=== PATIENT | male | born 1970 | race Caucasian/White ===

== ENCOUNTER → 2019-12-11 | Outpatient (CLI) | payer BC | END | disposition home or self-care (01) | LOC: LABWHC1 07:12 | PROVIDERS: ATTEND Family Medicine | DX: R50.9 Fever, unspecified (principal); R05 Cough | CPT/HCPCS: 87635 ==

== ENCOUNTER → 2023-10-10 | Outpatient (CLI) | payer BC ==
--- NOTE | 2023-10-11 13:58 | P.PCN ---
Description of Procedure: CLINICAL: A home sleep apnea test has been done for confirmation of possible obstructive sleep apnea-hypopnea syndrome. DESCRIPTION OF PROCEDURE: RESULTS: Recording time was 6 hours 54 minutes. Evaluation time was 6 hours 49 minutes. Evaluation time is sufficient for making conclusion about results of the test. Raw data of sleep recording has been reviewed and is adequate. Respiratory channel showed 14 apneas and 119 hypopneas. Apnea-hypopnea index was 19.5 per hour. Pulse rate in the range between minimum 48, maximum 110, average 74 by computer calculation. Lowest desaturation was 80%. IMPRESSION: 1. Moderate obstructive Sleep Apnea Hypopnea Syndrome. Please see other impressions from consultation. PLAN: 1. The patient will be started on auto-PAP treatment for correction of respiratory abnormallities during sleep. 2. I will see patient for follow up visit to discuss results of the test, evaluate clinical response on treatment with PAP therapy and make any necessary adjustments related to mask fitting, pressure, and humidification. 3. Watching and losing weight. 4. Sleep hygiene with regular time in bed for at least 8 hours. 5. No driving if feeling any sleepiness. Thank you very much for allowing me to participate in the management of your patient. Sincerely, Man Serra MD, PhD, FAASM Diplomat of [employer] Sleep Medicine Board of [employer] [facility] Adjust[facility] [place]
== END ==
LOC: 3 N SLEEP 15:30
PROVIDERS: ATTEND Internal Medicine
DX: G47.33 Obstructive sleep apnea (adult) (pediatric) (principal); Z87.891 Personal history of nicotine dependence

== ENCOUNTER → 2024-02-29 | Outpatient (CLI) | payer BC ==
[2024-02-29 16:14] VITALS: BP 133/82; PULSE 98; RESP 16; TEMP 98.7
--- NOTE | 2024-02-29 16:42 | P.PROGSL ---
Subjective DATE: 02/29/2024 FOLLOW UP VISIT. Patient with obstructive sleep apnea hypopnea syndrome return to sleep center for follow-up visit. Recently patient had home sleep apnea test which showed that patient has obstructive sleep apnea hypopnea syndrome and I discussed results of sleep studies with patient in details. Today is his first visit after patient was started on treatment with CPAP. Information from previous visit have been reviewed. Patient is using PAP equipment every night for the whole night, getting PAP supplies in time. The patient does not have significant problems with the mask, PAP unit and humidification. [place] sleepiness scale is 7, which is normal. I checked information from PAP unit. PAP unit pressure 5-15, average 9.3 cm H2O. Usage is 83% and 70% for more then 4 hours, average 6 hours per night. Leak is 15.7 l/m, which is in acceptable range. Apnea Hypopnea Index is 1.1, which is normal. MEDICATIONS have been reviewed, please see below. During physical exam: GENERAL: A pleasant patient without any distress. VITAL SIGNS: Please see below, weight is 247.2 pounds lbs. HEENT: PERRLA, EOMI.low position of soft palate, [place] 3. NECK: Supple. No JVD. LUNGS: Clear to percussion and to auscultation. Good air exchange. No wheezing or rhonchi. HEART: S1, S2 regular. ABDOMEN: Soft and nontender.[] EXTREMITIES: No clubbing or cyanosis. LOG CHIPPER: Awake, alert, and oriented x3. No focal deficit. Impressions: 1. Obstructive sleep apnea-hypopnea syndrome. Patient demonstrated good compliance with treatment, benefiting from treatment. 2. Mild obesity. 3. History of headaches. Plan: 1. Continue using PAP equipment every night for the whole night. 2. Sleep hygiene with regular time in bed for at least 7.5-8 hours 3. PAP unit should stay lower then position of the head. 4. Advised patient to remove all remaining water from humidifier canister daily and make it dry after each usage. Refill canister with fresh distilled water before each usage. 5. Watching weight. 6. Precautions related to driving. No driving if feel any sleepiness. 7. I will maintain prescription for PAP supplies including mask, tube, filters. 8. Follow up visit in 6 months or earlier if patient has any problems. Thank you very much for allowing me to participate in the management of your patient. Man Serra MD, PhD, FAASM. Diplomat of [place] [employer], Sleep Medicine Board by [place] [employer] Inspector [employer] [facility] [place] cc: Rich Norris DO Objective - Vital Signs Vital Signs: Vital Signs Temp 98.7 F 02/29/24 16:12 Pulse 98 02/29/24 16:12 Resp 16 02/29/24 16:12 BP 133/82 02/29/24 16:12 Pulse Ox 97 02/29/24 16:12 FiO2 Home Medications: Home Medications Medication Instructions Recorded Confirmed Type Amoxicillin 875 mg PO Q12HR 10/14/15 10/16/15 History Dexmethylphenidate HCl [Focalin] 5 mg PO QAM 10/14/15 10/16/15 History Multivitamin [Men's Multi-Vitamin] 1 each PO HS 10/14/15 10/14/15 History
== END ==
LOC: 3 N SLEEP 15:32
PROVIDERS: ATTEND Internal Medicine
DX: G47.33 Obstructive sleep apnea (adult) (pediatric) (principal); E66.9 Obesity, unspecified; Z99.89 Dependence on other enabling machines and devices; Z86.69 Personal history of other diseases of the nervous system and sense organs; Z87.891 Personal history of nicotine dependence
CPT/HCPCS: 99212

== ENCOUNTER → 2025-01-15 | Outpatient (CLI) | payer BC ==
--- NOTE | 2025-01-15 19:47 | CA ---
Exercise Stress Test Report Name: Chencho Murillo Exam Date: 01/15/2025 11:19 Exam Location: [facility] Ht (in): 73 Wt (lb): 250 BSA: 2.37 Ordering Phys: Aydin Carr DO Referring Phys: Aydin Carr DO Technologist: SAI PORTILLO Age: 54 Gender: M : 1970 Procedure CPT: Indications: R06.02 SOB ICD-10 Codes: Patient History: DIFFICULTY IN BREATHING, PRIOR SMOKER Medications: ADDERALL,,,, D3,,, Meds past 24 hrs: Pretest Chest Pain: STRESS TEST Doug Protocol Exercise Duration (min:sec): 07:[address] Depressions (mm): 0 Angina Score: 0 Newton Score: 7.03 Resting HR (bpm): 98 Peak HR (bpm): 149 Resting BP (mmHg): 148 / 92 Peak BP (mmHg): 253 / 78 MPHR: 165 Target HR: 140 % MPHR: 90 METS: 8.9 Total Dose: Peak Dose: Atropine: Double Product: 08765 BP Response: Stress Termination: TARGET HR REACHED/MAX EXERTION Stress Symptoms: "JITTERY",FLUSHED Stress Summary: The patient's target heart rate was achieved ECG ANALYSIS Resting ECG: Sinus rhythm. Incomplete right bundle branch block. No arrhythmias. Normal repolarization. Stress ECG: No ECG evidence of ischemia with exercise. Ventricular premature contraction. CONCLUSIONS Patient falls into low-risk group (DTS >= +5). This associates the patient with an annual CV mortality <= 0.5%. Good exercise tolerance with normal electrocardiographic response to exercise Dr. Kayden Ochoa MD (Electronically Signed) Final Date: 15 January 2025 19:47
== END | disposition home or self-care (01) ==
LOC: RADNMMAIN 10:32
PROVIDERS: ATTEND Family Medicine
DX: R06.02 Shortness of breath (principal); Z87.891 Personal history of nicotine dependence
CPT/HCPCS: 93017